=== PATIENT | male | born 1985 | race Caucasian/White ===

== ENCOUNTER 2018-12-15 07:33 | Emergency (ER) | payer BC, OTHER ==
[~2018-12-15] VITALS: Ht 182.8 cm; Wt 103.4 kg
--- NOTE | ~2018-12-15 | EKG ---
[place], [place] ELECTROCARDIOGRAM REPORT NAME: KESHIA MCKNIGHT UNIT #: [id number] ROOM: DOCTOR: TORY DRAFT REPORT BIRTHDATE: [birth year] [facility] Test Date: 2018-12-15 Test Time: 07:57:07 Pat Name: KESHIA MCKNIGHT Department: Room: Gender: [employer]: : 1985 Requested By: IRINEO SORIANO Order Number: [id number] Reading MD: Vineet Eaton MD Measurements Intervals [place] Rate: 75 P: 57 IA: 152 QRS: 44 QRSD: 106 T: 12 QT: 377 QTc: 421 Interpretive Statements Sinus rhythm Borderline T wave abnormalities Electronically Signed On 12-16-2018 3:43:51 PDT by Vineet Eaton MD CM:EKGRPT:ELECTROCARDIOGRAM REPORT [id number] IRINEO SPEARS DRAFT REPORT IRINEO SORIANO M.D.
[~2018-12-15 07:33] MED LIST: FLEXERIL5 MG PO; MOTRIN800 MG PO; ZANTAC 150150 MG PO
[2018-12-15 08:03] LABS: BILIRUBIN NEGATIVE (NEGATIVE); BLOOD NEGATIVE (NEGATIVE); CLARITY SL CLOUDY (CLEAR); COLOR YELLOW (YELLOW); GLUCOSE NEGATIVE (NEGATIVE); KETONE NEGATIVE (NEGATIVE); LEUKO ESTERASE NEGATIVE (NEGATIVE); NITRITE NEGATIVE (NEGATIVE); PH 5.5 (5.0-9.0); SPECIFIC GRAVITY >= 1.030 (1.005-1.030); UROBILINOGEN 0.2 E.U./dl (0.2-1.0)
[2018-12-15 08:03] LABS: BASO % 0.3 % (0.0-1.0); EOS # 0.1 10*3/uL (0.0-0.4); EOS % 1.1 % (1.0-4.0); HEMOGLOBIN 15.7 g/dl (14.0-18.0); LYMPH # 1.7 10*3/uL (1.3-4.4); LYMPH % 15.8 % (27.0-41.0); MEAN CELL VOLUME 89.8 fl (80.0-94.0); MEAN CORPUSCULAR HGB 30.7 pg (27.0-31.0); MEAN CORPUSCULAR HGB CONC 34.1 g/dl (33.0-37.0); MEAN PLATELET VOLUME 10.2 fl (9.6-12.3); MONO # 0.6 10*3/uL (0.1-1.0); NEUT # 8.1 10*3/uL (2.3-7.9); NEUT % 76.4 % (47.0-73.0); PLATELET COUNT AUTOMATED 266 10*3/uL (130-400); RED BLOOD COUNT 5.12 10*6/uL (4.50-5.90); RED CELL DISTRI WIDTH 12.6 % (0-14.5); WHITE BLOOD COUNT 10.6 10*3/uL (4.8-10.8)
[2018-12-15 08:11] LABS: BACTERIA TRACE; EPITHELIAL CELLS 0-2; WBC 0-2 wbc/hpf (0-5)
[2018-12-15 08:20] LABS: ALBUMIN 4.1 gm/dl (3.1-4.5); ALKALINE PHOSPHATASE 81 U/L (45-117); BUN 10 mg/dl (7-24); CHLORIDE 108 mmol/L (98-107); CREATININE 1.04 mg/dL (0.70-1.30); POTASSIUM 3.5 mmol/L (3.5-5.1); SGOT/AST 15 IU/L (3-35); SGPT/ALT 25 U/L (12-78); SODIUM 142 mmol/L (136-145); TOTAL PROTEIN 7.3 gm/dL (6.4-8.2)
[2018-12-15] MEDS ORDERED: PRILOSEC20 M1 PO (08:40)
[2018-12-16] MEDS ORDERED: PEPCID40 MG PO (01:37)
== END 2018-12-15 09:08 | disposition home or self-care (01) ==
LOC: ED 07:33
PROVIDERS: Emergency Medicine
DX: K21.9 Gastro-esophageal reflux disease without esophagitis (principal); R11.2 Nausea with vomiting, unspecified; R10.13 Epigastric pain

== ENCOUNTER 2018-12-16 01:08 | Emergency (ER) | payer BC, OTHER ==
[~2018-12-16] VITALS: Ht 182.8 cm; Wt 103.4 kg
[~2018-12-16 01:08] MED LIST changes: +PRILOSEC20 M1 PO
[2018-12-16] MEDS ORDERED: PEPCID40 MG PO (01:37)
== END 2018-12-16 02:34 | disposition home or self-care (01) ==
LOC: ED 01:08
DX: K21.9 Gastro-esophageal reflux disease without esophagitis (principal); F17.200 Nicotine dependence, unspecified, uncomplicated; Z79.899 Other long term (current) drug therapy

== ENCOUNTER 2019-02-09 02:34 | Emergency (ER) | payer BC, OTHER ==
[~2019-02-09] VITALS: Ht 182.8 cm; Wt 104.3 kg
[~2019-02-09 02:34] MED LIST changes: +PEPCID40 MG PO
[2019-02-09 03:05] LABS: BASO # 0.1 10*3/uL (0.0-0.1); BASO % 0.5 % (0.0-1.0); EOS # 0.2 10*3/uL (0.0-0.4); EOS % 1.7 % (1.0-4.0); HEMATOCRIT 45.6 % (42.0-52.0); HEMOGLOBIN 15.7 g/dl (14.0-18.0); LYMPH # 3.9 10*3/uL (1.3-4.4); LYMPH % 35.1 % (27.0-41.0); MEAN CELL VOLUME 87.9 fl (80.0-94.0); MEAN CORPUSCULAR HGB 30.3 pg (27.0-31.0); MEAN CORPUSCULAR HGB CONC 34.4 g/dl (33.0-37.0); MEAN PLATELET VOLUME 10.1 fl (9.6-12.3); MONO # 0.9 10*3/uL (0.1-1.0); MONO % 7.9 % (3.0-9.0); NEUT % 54.3 % (47.0-73.0); PLATELET COUNT AUTOMATED 251 10*3/uL (130-400); RED BLOOD COUNT 5.19 10*6/uL (4.50-5.90); RED CELL DISTRI WIDTH 12.4 % (0-14.5)
[2019-02-09 03:21] LABS: ALBUMIN 3.9 gm/dl (3.1-4.5); ALKALINE PHOSPHATASE 85 U/L (45-117); BUN 15 mg/dl (7-24); CHLORIDE 106 mmol/L (98-107); CREATININE 1.03 mg/dL (0.70-1.30); LIPASE 105 U/L (73-393); POTASSIUM 3.5 mmol/L (3.5-5.1); SGOT/AST 10 IU/L (3-35); SGPT/ALT 31 U/L (12-78); SODIUM 140 mmol/L (136-145); TOTAL PROTEIN 7.1 gm/dL (6.4-8.2)
== END 2019-02-09 03:52 | disposition home or self-care (01) ==
LOC: ED 02:34
PROVIDERS: Student in an Organized Health Care Education/Training Program
DX: R10.13 Epigastric pain (principal); K21.9 Gastro-esophageal reflux disease without esophagitis

== ENCOUNTER 2019-03-02 00:47 | Emergency (ER) | payer BC, OTHER ==
[~2019-03-02] VITALS: Wt 106.6 kg
[2019-03-02] MEDS ORDERED: ZANTAC 150150 MG PO (02:01)
== END 2019-03-02 02:30 | disposition home or self-care (01) ==
LOC: ED 00:47
DX: K21.9 Gastro-esophageal reflux disease without esophagitis (principal); R11.2 Nausea with vomiting, unspecified

== ENCOUNTER 2019-04-05 06:46 | Emergency (ER) | payer BC, OTHER ==
[~2019-04-05] VITALS: Ht 182.8 cm; Wt 106.6 kg
[2019-04-05 07:37] LABS: BASO % 0.4 % (0.0-1.0); EOS # 0.2 10*3/uL (0.0-0.4); EOS % 1.4 % (1.0-4.0); HEMATOCRIT 45.9 % (42.0-52.0); HEMOGLOBIN 15.8 g/dl (14.0-18.0); LYMPH # 2.8 10*3/uL (1.3-4.4); LYMPH % 25.1 % (27.0-41.0); MEAN CELL VOLUME 88.1 fl (80.0-94.0); MEAN CORPUSCULAR HGB 30.3 pg (27.0-31.0); MEAN CORPUSCULAR HGB CONC 34.4 g/dl (33.0-37.0); MEAN PLATELET VOLUME 9.9 fl (9.6-12.3); MONO # 0.7 10*3/uL (0.1-1.0); MONO % 5.9 % (3.0-9.0); NEUT # 7.4 10*3/uL (2.3-7.9); NEUT % 66.6 % (47.0-73.0); PLATELET COUNT AUTOMATED 269 10*3/uL (130-400); RED BLOOD COUNT 5.21 10*6/uL (4.50-5.90); RED CELL DISTRI WIDTH 12.7 % (0-14.5); WHITE BLOOD COUNT 11.1 10*3/uL (4.8-10.8)
[2019-04-05 07:50] LABS: ALBUMIN 3.7 gm/dl (3.1-4.5); ALKALINE PHOSPHATASE 82 U/L (45-117); BUN 15 mg/dl (7-24); CHLORIDE 108 mmol/L (98-107); CREATININE 1.09 mg/dL (0.70-1.30); LIPASE 99 U/L (73-393); POTASSIUM 3.6 mmol/L (3.5-5.1); SGOT/AST 15 IU/L (3-35); SGPT/ALT 29 U/L (12-78); SODIUM 139 mmol/L (136-145); TOTAL PROTEIN 7.4 gm/dL (6.4-8.2)
[2019-04-05 08:03] LABS: TROPONIN I < 0.015 ng/ml (<0.045)
== END 2019-04-05 08:11 | disposition home or self-care (01) ==
LOC: ED 06:46
PROVIDERS: Emergency Medicine
DX: R10.13 Epigastric pain (principal); R11.10 Vomiting, unspecified; K21.9 Gastro-esophageal reflux disease without esophagitis; F17.200 Nicotine dependence, unspecified, uncomplicated; Z79.899 Other long term (current) drug therapy

== ENCOUNTER 2019-05-15 06:34 | Emergency (ER) | payer BC, OTHER ==
[~2019-05-15] VITALS: Ht 182.8 cm; Wt 106.6 kg
[2019-05-15 08:08] LABS: BASO % 0.3 % (0.0-1.0); EOS # 0.2 10*3/uL (0.0-0.4); EOS % 1.9 % (1.0-4.0); HEMATOCRIT 47.9 % (42.0-52.0); HEMOGLOBIN 16.4 g/dl (14.0-18.0); LYMPH # 2.2 10*3/uL (1.3-4.4); LYMPH % 28.3 % (27.0-41.0); MEAN CELL VOLUME 88.5 fl (80.0-94.0); MEAN CORPUSCULAR HGB 30.3 pg (27.0-31.0); MEAN CORPUSCULAR HGB CONC 34.2 g/dl (33.0-37.0); MEAN PLATELET VOLUME 9.9 fl (9.6-12.3); MONO # 0.5 10*3/uL (0.1-1.0); MONO % 6.8 % (3.0-9.0); NEUT # 4.9 10*3/uL (2.3-7.9); NEUT % 62.4 % (47.0-73.0); PLATELET COUNT AUTOMATED 261 10*3/uL (130-400); RED BLOOD COUNT 5.41 10*6/uL (4.50-5.90); RED CELL DISTRI WIDTH 12.4 % (0-14.5); WHITE BLOOD COUNT 7.8 10*3/uL (4.8-10.8)
[2019-05-15 08:24] LABS: ALBUMIN 3.9 gm/dl (3.1-4.5); ALKALINE PHOSPHATASE 93 U/L (45-117); BUN 15 mg/dl (7-24); CHLORIDE 109 mmol/L (98-107); CREATININE 1.13 mg/dL (0.70-1.30); LIPASE 75 U/L (73-393); POTASSIUM 4.1 mmol/L (3.5-5.1); SGOT/AST 16 IU/L (3-35); SGPT/ALT 34 U/L (12-78); SODIUM 139 mmol/L (136-145); TOTAL PROTEIN 7.6 gm/dL (6.4-8.2)
[2019-05-15] MEDS ORDERED: PRILOSEC20 M1 PO (09:17)
== END 2019-05-15 09:21 | disposition home or self-care (01) ==
LOC: ED 06:34
PROVIDERS: Emergency Medicine
DX: K21.9 Gastro-esophageal reflux disease without esophagitis (principal); F17.200 Nicotine dependence, unspecified, uncomplicated; Z79.899 Other long term (current) drug therapy

== ENCOUNTER 2019-08-11 15:05 | Emergency (ER) | payer BC ==
[~2019-08-11] VITALS: Ht 182.8 cm; Wt 108.9 kg
== END 2019-08-11 17:03 ==
LOC: ED 15:05
DX: K21.9 Gastro-esophageal reflux disease without esophagitis (principal); Z79.899 Other long term (current) drug therapy

== ENCOUNTER 2019-11-07 09:19 | Emergency (ER) | payer BC ==
[~2019-11-07] VITALS: Ht 182.8 cm; Wt 108.9 kg
[2019-11-07 10:01] LABS: BASO % 0.3 % (0.0-1.0); EOS % 0.4 % (1.0-4.0); HEMATOCRIT 48.4 % (42.0-52.0); LYMPH % 18.2 % (27.0-41.0); MEAN CELL VOLUME 87.4 fl (80.0-94.0); MEAN CORPUSCULAR HGB 29.8 pg (27.0-31.0); MEAN CORPUSCULAR HGB CONC 34.1 g/dl (33.0-37.0); MEAN PLATELET VOLUME 9.8 fl (9.6-12.3); MONO # 0.6 10*3/uL (0.1-1.0); MONO % 5.6 % (3.0-9.0); NEUT # 8.3 10*3/uL (2.3-7.9); PLATELET COUNT AUTOMATED 299 10*3/uL (130-400); RED BLOOD COUNT 5.54 10*6/uL (4.50-5.90); RED CELL DISTRI WIDTH 12.3 % (0-14.5); WHITE BLOOD COUNT 11.1 10*3/uL (4.8-10.8)
[2019-11-07 10:14] LABS: ALBUMIN 3.8 gm/dl (3.1-4.5); ALKALINE PHOSPHATASE 76 U/L (45-117); BUN 12 mg/dl (7-24); CHLORIDE 108 mmol/L (98-107); CREATININE 1.06 mg/dL (0.70-1.30); LIPASE 55 U/L (73-393); POTASSIUM 3.8 mmol/L (3.5-5.1); SGOT/AST 12 IU/L (3-35); SGPT/ALT 31 U/L (12-78); SODIUM 138 mmol/L (136-145); TOTAL PROTEIN 7.3 gm/dL (6.4-8.2)
[2019-11-16] MEDS ORDERED: PANTOPRAZOLE SO40 MG PO (12:46)
[2019-11-16] MEDS ORDERED: HYDROCODONE-AC1 EAC1 PO (12:46)
[2019-11-16] MEDS ORDERED: CIPROFLOXACIN500 M4 PO (12:46)
== END 2019-11-07 10:54 | disposition home or self-care (01) ==
LOC: ED 09:19
PROVIDERS: Emergency Medicine
DX: K21.9 Gastro-esophageal reflux disease without esophagitis (principal); Z79.899 Other long term (current) drug therapy

== ENCOUNTER 2019-11-08 06:32 | Emergency (ER) | payer BC ==
[~2019-11-08] VITALS: Ht 182.8 cm; Wt 108.9 kg
[2019-11-08 07:36] LABS: BASO % 0.1 % (0.0-1.0); EOS # 0.1 10*3/uL (0.0-0.4); EOS % 0.4 % (1.0-4.0); HEMATOCRIT 50.2 % (42.0-52.0); LYMPH # 1.6 10*3/uL (1.3-4.4); LYMPH % 13.4 % (27.0-41.0); MEAN CELL VOLUME 87.8 fl (80.0-94.0); MEAN CORPUSCULAR HGB 30.1 pg (27.0-31.0); MEAN CORPUSCULAR HGB CONC 34.3 g/dl (33.0-37.0); MEAN PLATELET VOLUME 9.9 fl (9.6-12.3); MONO # 0.8 10*3/uL (0.1-1.0); MONO % 6.7 % (3.0-9.0); NEUT # 9.3 10*3/uL (2.3-7.9); NEUT % 79.1 % (47.0-73.0); PLATELET COUNT AUTOMATED 299 10*3/uL (130-400); RED BLOOD COUNT 5.72 10*6/uL (4.50-5.90); RED CELL DISTRI WIDTH 12.4 % (0-14.5); WHITE BLOOD COUNT 11.8 10*3/uL (4.8-10.8)
[2019-11-08 07:52] LABS: ALBUMIN 4.1 gm/dl (3.1-4.5); ALKALINE PHOSPHATASE 88 U/L (45-117); BUN 11 mg/dl (7-24); CHLORIDE 103 mmol/L (98-107); CREATININE 1.09 mg/dL (0.70-1.30); LIPASE 62 U/L (73-393); SGOT/AST 10 IU/L (3-35); SGPT/ALT 31 U/L (12-78); SODIUM 136 mmol/L (136-145); TOTAL PROTEIN 7.9 gm/dL (6.4-8.2)
[2019-11-08 08:05] LABS: BILIRUBIN NEGATIVE (NEGATIVE); BLOOD 1+ (NEGATIVE); CLARITY SL CLOUDY (CLEAR); COLOR YELLOW (YELLOW); GLUCOSE NEGATIVE (NEGATIVE); KETONE NEGATIVE (NEGATIVE); SPECIFIC GRAVITY 1.025 (1.005-1.030); UROBILINOGEN 0.2 E.U./dl (0.2-1.0)
[2019-11-08 08:06] LABS: LEUKO ESTERASE 1+ (NEGATIVE); NITRITE NEGATIVE (NEGATIVE)
[2019-11-08 08:09] LABS: RBC TNTC rbc/hpf (0-2)
[2019-11-08 08:11] LABS: BACTERIA 1+; MUCOUS 2+
== END 2019-11-08 09:37 | disposition home or self-care (01) ==
LOC: ED 06:32
PROVIDERS: Emergency Medicine; Emergency Medicine Emergency Medical Services
DX: K80.10 Calculus of gallbladder with chronic cholecystitis without obstruction (principal); K21.9 Gastro-esophageal reflux disease without esophagitis; Z87.891 Personal history of nicotine dependence; Z79.899 Other long term (current) drug therapy

== ENCOUNTER 2019-11-10 08:15 | Emergency (ER) | payer BC ==
[~2019-11-10] VITALS: Ht 182.8 cm; Wt 108.9 kg
[2019-11-10 08:54] LABS: BASO % 0.4 % (0.0-1.0); EOS # 0.1 10*3/uL (0.0-0.4); EOS % 1.3 % (1.0-4.0); LYMPH # 2.1 10*3/uL (1.3-4.4); MEAN CELL VOLUME 87.8 fl (80.0-94.0); MEAN CORPUSCULAR HGB 29.7 pg (27.0-31.0); MEAN CORPUSCULAR HGB CONC 33.9 g/dl (33.0-37.0); MEAN PLATELET VOLUME 9.7 fl (9.6-12.3); MONO # 0.8 10*3/uL (0.1-1.0); MONO % 8.4 % (3.0-9.0); NEUT # 6.7 10*3/uL (2.3-7.9); NEUT % 68.6 % (47.0-73.0); PLATELET COUNT AUTOMATED 297 10*3/uL (130-400); RED BLOOD COUNT 5.58 10*6/uL (4.50-5.90); RED CELL DISTRI WIDTH 12.2 % (0-14.5); WHITE BLOOD COUNT 9.8 10*3/uL (4.8-10.8)
[2019-11-10 09:04] LABS: ACT PARTIAL THROMBO TIME 29.3 SECONDS (20.0-32.1)
[2019-11-10 09:10] LABS: BUN 18 mg/dl (7-24); CHLORIDE 104 mmol/L (98-107); CREATININE 1.21 mg/dL (0.70-1.30); LDH 157 U/L (87-241); LIPASE 50 U/L (73-393); POTASSIUM 3.9 mmol/L (3.5-5.1); SGOT/AST 13 IU/L (3-35); SGPT/ALT 31 U/L (12-78); SODIUM 136 mmol/L (136-145); TOTAL PROTEIN 7.5 gm/dL (6.4-8.2)
[2019-11-10 09:11] LABS: ALKALINE PHOSPHATASE 87 U/L (45-117)
[2019-11-10 10:50] LABS: BILIRUBIN NEGATIVE (NEGATIVE); BLOOD NEGATIVE (NEGATIVE); CLARITY CLEAR (CLEAR); COLOR YELLOW (YELLOW); GLUCOSE NEGATIVE (NEGATIVE); KETONE NEGATIVE (NEGATIVE); LEUKO ESTERASE NEGATIVE (NEGATIVE); NITRITE NEGATIVE (NEGATIVE); PH 7.5 (5.0-9.0); SPECIFIC GRAVITY 1.015 (1.005-1.030); UROBILINOGEN 0.2 E.U./dl (0.2-1.0)
[2019-11-10 10:51] LABS: WBC 0-2 wbc/hpf (0-5)
[2019-11-10] MEDS ORDERED: DICYCLOMINE HYD20 MG PO (23:27)
[2019-11-16] MEDS ORDERED: HYDROCODONE-AC1 EAC1 PO (12:46)
[2019-11-16] MEDS ORDERED: CIPROFLOXACIN500 M4 PO (12:46)
[2019-11-16] MEDS ORDERED: PANTOPRAZOLE SO40 MG PO (12:46)
== END 2019-11-10 10:08 | disposition home or self-care (01) ==
LOC: ED 08:15
PROVIDERS: Emergency Medicine; Family Medicine
DX: K80.50 Calculus of bile duct without cholangitis or cholecystitis without obstruction (principal); R10.11 Right upper quadrant pain; Z79.899 Other long term (current) drug therapy

== ENCOUNTER 2019-11-10 19:16 | Emergency (ER) | payer BC ==
[~2019-11-10] VITALS: Ht 182.8 cm; Wt 108.9 kg
[2019-11-10 22:10] LABS: BASO % 0.2 % (0.0-1.0); EOS # 0.1 10*3/uL (0.0-0.4); EOS % 0.6 % (1.0-4.0); HEMATOCRIT 46.1 % (42.0-52.0); LYMPH # 1.7 10*3/uL (1.3-4.4); LYMPH % 13.3 % (27.0-41.0); MEAN CORPUSCULAR HGB 30.5 pg (27.0-31.0); MEAN CORPUSCULAR HGB CONC 34.7 g/dl (33.0-37.0); MEAN PLATELET VOLUME 9.7 fl (9.6-12.3); MONO # 0.9 10*3/uL (0.1-1.0); MONO % 7.5 % (3.0-9.0); NEUT # 9.8 10*3/uL (2.3-7.9); NEUT % 78.1 % (47.0-73.0); PLATELET COUNT AUTOMATED 296 10*3/uL (130-400); RED BLOOD COUNT 5.24 10*6/uL (4.50-5.90); RED CELL DISTRI WIDTH 12.2 % (0-14.5); WHITE BLOOD COUNT 12.6 10*3/uL (4.8-10.8)
[2019-11-10 22:43] LABS: ALBUMIN 3.7 gm/dl (3.1-4.5); ALKALINE PHOSPHATASE 86 U/L (45-117); BUN 16 mg/dl (7-24); CHLORIDE 107 mmol/L (98-107); CREATININE 1.15 mg/dL (0.70-1.30); LIPASE 54 U/L (73-393); POTASSIUM 3.9 mmol/L (3.5-5.1); SGOT/AST 8 IU/L (3-35); SGPT/ALT 26 U/L (12-78); SODIUM 138 mmol/L (136-145); TOTAL PROTEIN 7.3 gm/dL (6.4-8.2)
[2019-11-10] MEDS ORDERED: DICYCLOMINE HYD20 MG PO (23:27)
[2019-11-16] MEDS ORDERED: CIPROFLOXACIN500 M4 PO (12:46)
[2019-11-16] MEDS ORDERED: HYDROCODONE-AC1 EAC1 PO (12:46)
[2019-11-16] MEDS ORDERED: PANTOPRAZOLE SO40 MG PO (12:46)
== END 2019-11-10 23:43 | disposition home or self-care (01) ==
LOC: ED 19:16
PROVIDERS: Emergency Medicine
DX: K80.20 Calculus of gallbladder without cholecystitis without obstruction (principal); K82.9 Disease of gallbladder, unspecified; K21.9 Gastro-esophageal reflux disease without esophagitis

== ENCOUNTER → 2019-11-16 | Outpatient (CLI) | payer BC ==
[~2019-11-16] MED LIST changes: +CIPROFLOXACIN500 M4 PO; +COLACE100 MG PO; +DICYCLOMINE HYD20 MG PO; +HYDROCODONE-AC1 EAC1 PO; +NORCO 5-325 TA1 EACH PO; +PANTOPRAZOLE SO40 MG PO; +ZOFRAN4 MG PO
== END | disposition home or self-care (01) ==
LOC: US 12:02 → EDSTATUS 12:30
DX: K80.20 Calculus of gallbladder without cholecystitis without obstruction (principal); K82.8 Other specified diseases of gallbladder

== ENCOUNTER → 2019-11-19 | Day surgery (SDC) | payer BC ==
[2019-11-16 12:48] VITALS: BP 144/94
[2019-11-16 13:34] LABS: BASO % 0.3 % (0.0-1.0); EOS # 0.1 10*3/uL (0.0-0.4); EOS % 0.5 % (1.0-4.0); HEMATOCRIT 49.3 % (42.0-52.0); LYMPH # 2.2 10*3/uL (1.3-4.4); LYMPH % 20.4 % (27.0-41.0); MEAN CELL VOLUME 85.6 fl (80.0-94.0); MEAN CORPUSCULAR HGB 29.9 pg (27.0-31.0); MEAN CORPUSCULAR HGB CONC 34.9 g/dl (33.0-37.0); MEAN PLATELET VOLUME 9.6 fl (9.6-12.3); MONO # 0.9 10*3/uL (0.1-1.0); MONO % 8.2 % (3.0-9.0); NEUT # 7.6 10*3/uL (2.3-7.9); NEUT % 70.3 % (47.0-73.0); PLATELET COUNT AUTOMATED 344 10*3/uL (130-400); RED BLOOD COUNT 5.76 10*6/uL (4.50-5.90); RED CELL DISTRI WIDTH 11.9 % (0-14.5); WHITE BLOOD COUNT 10.8 10*3/uL (4.8-10.8)
[2019-11-16 13:51] LABS: ALBUMIN 4.1 gm/dl (3.1-4.5); ALKALINE PHOSPHATASE 99 U/L (45-117); BILIRUBIN, DIRECT 0.3 mg/dL (0.0-0.2); BUN 11 mg/dl (7-24); CHLORIDE 101 mmol/L (98-107); CREATININE 0.94 mg/dL (0.70-1.30); POTASSIUM 3.9 mmol/L (3.5-5.1); SGOT/AST 15 IU/L (3-35); SGPT/ALT 28 U/L (12-78); SODIUM 134 mmol/L (136-145); TOTAL PROTEIN 8.3 gm/dL (6.4-8.2)
[~2019-11-19] VITALS: Ht 182.8 cm; Wt 104.3 kg
[2019-11-19 09:17] VITALS: BP 154/83
[2019-11-19 13:00] VITALS: BP 169/84
[2019-11-19 13:15] VITALS: BP 156/76
[2019-11-19 13:30] VITALS: BP 147/70
[2019-11-19 13:45] VITALS: BP 165/73
== END | disposition home or self-care (01) ==
LOC: US 11-16 12:30 → SDC 11-16 13:15
PROVIDERS: Surgery
DX: K80.10 Calculus of gallbladder with chronic cholecystitis without obstruction (principal); K21.9 Gastro-esophageal reflux disease without esophagitis; J45.909 Unspecified asthma, uncomplicated; Z87.891 Personal history of nicotine dependence; Z79.899 Other long term (current) drug therapy

== ENCOUNTER 2020-10-22 17:06 | Emergency (ER) | payer BC ==
[~2020-10-22] VITALS: Ht 182.8 cm; Wt 111.1 kg
[2020-10-22] MEDS ORDERED: TYLENOL325 M1 PO (18:15)
[2020-10-22] MEDS ORDERED: NAPROXEN250 MG PO (18:15)
== END 2020-10-22 18:33 | disposition home or self-care (01) ==
LOC: ED 17:06
DX: S93.401A Sprain of unspecified ligament of right ankle, initial encounter (principal); K21.9 Gastro-esophageal reflux disease without esophagitis; Z98.890 Other specified postprocedural states; X50.9XXA Other and unspecified overexertion or strenuous movements or postures, initial encounter; Y93.89 Activity, other specified; Y92.89 Other specified places as the place of occurrence of the external cause; Y99.8 Other external cause status

== ENCOUNTER 2021-11-28 15:59 | Emergency (ER) | payer BC ==
[~2021-11-28] VITALS: Wt 111.1 kg
[~2021-11-28 15:59] MED LIST changes: +NAPROXEN250 MG PO; +TYLENOL325 M1 PO
== END 2021-11-28 18:39 | disposition home or self-care (01) ==
LOC: ED 15:59
DX: S05.02XA Injury of conjunctiva and corneal abrasion without foreign body, left eye, initial encounter (principal); W22.8XXA Striking against or struck by other objects, initial encounter; Y93.89 Activity, other specified; Y92.89 Other specified places as the place of occurrence of the external cause; Y99.8 Other external cause status

== ENCOUNTER 2024-06-23 07:05 | Emergency (ER) | payer BC ==
[2024-06-23] VITALS (7 sets, daily range): BP systolic 101–138; BP diastolic 75–101
[~2024-06-23] VITALS: Ht 182.8 cm; Wt 122.5 kg
[~2024-06-23 07:05] MED LIST changes: +OMNICEF300 MG PO; +ZITHROMAX250 MG PO
[2024-06-23] MEDS ORDERED: Glucagon Hydrochloride 1 MG SYR IM ONE (07:45)
[2024-06-23] MEDS ORDERED: SODIUM CHLORIDE 0.9% 500 ML IV ONE (10:50)
[2024-06-23] MEDS ORDERED: Lactated Ringer's Solution 500 ML IV ONE ×2 (11:04→12:36)
[2024-06-23] MEDS ORDERED: IOHEXOL 12 MG/ML (IODINE) ORAL SOLUTION PO ONE (13:30)
[2024-06-23] MEDS ORDERED: Piperacillin Sodium/Tazobact 100 ML IV ONE (15:50)
[2024-06-23] MEDS ORDERED: FLUCONAZOLE IV ONE (15:50)
[2024-06-24] MEDS ORDERED: GLYCOPYRROLATE 0.4 MG/2 ML VIAL IV ONE (15:14)
[2024-06-24] MEDS ORDERED: Dexamethasone Sodium Phospha 4 MG/ML VIAL IV ONE (15:14)
[2024-06-24] MEDS ORDERED: Lidocaine Hydrochloride 2% 5 ML SDV IM ONE (15:14)
[2024-06-24] MEDS ORDERED: Ondansetron Hydrochloride 4 MG/2 ML VIAL IV ONE (15:14)
[2024-06-24] MEDS ORDERED: PROPOFOL 200 MG/20 ML VIAL IV ONE (15:14)
[2024-06-24] MEDS ORDERED: SUGAMMADEX SODIUM 200 MG/2 ML VIAL IV ONE (15:14)
[2024-06-24] MEDS ORDERED: SEVOFLURANE 250 ML BOT INH ONE (15:16)
== END 2024-06-23 20:23 | disposition home or self-care (01) ==
LOC: ED 07:05 → EDHOLD 13:11 → ED 20:23
DX: T18.128A Food in esophagus causing other injury, initial encounter (principal); K21.9 Gastro-esophageal reflux disease without esophagitis; J02.9 Acute pharyngitis, unspecified; Z79.899 Other long term (current) drug therapy; Z90.49 Acquired absence of other specified parts of digestive tract; Z87.891 Personal history of nicotine dependence; W44.F3XA Food entering into or through a natural orifice, initial encounter; Y93.89 Activity, other specified; Y92.89 Other specified places as the place of occurrence of the external cause; Y99.8 Other external cause status